=== PATIENT | female | born 1950 ===

== ENCOUNTER 2016-08-24 10:51 | Emergency (ER) | payer BC, OTHER ==
[2016-08-24 11:24] VITALS: O2SAT 97
[2016-08-24] MEDS ORDERED: Naproxen 550 mg Tab PO STA (11:33)
[2016-08-24] MEDS ORDERED: Naproxen 550 mg Tab PO ONE (11:38)
--- NOTE | 2016-08-24 11:38 | C.PDOC ---
History Of Present Illness 66 y/o female presents to ED with complaints of lateral neck pain for 2 days. Patient states she thinks it is muscle spasm that she has had before and the symptoms are similar now. Patient denies fall, injury, chest pain, sob, fever or any other complaints at this time. Time Seen by Provider: 08/24/16 11:21 Chief Complaint (Nursing): Upper Extremity Problem/Injury History Per: Patient History/Exam Limitations: no limitations Onset/Duration Of Symptoms: Days Current Symptoms Are (Timing): Still Present Quality: "Pain" Past Medical History Reviewed: Historical Data, Nursing Documentation, Vital Signs Vital Signs: Last Vital Signs Temp 98.2 F 08/24/16 11:20 Pulse 65 08/24/16 11:20 Resp 16 08/24/16 11:20 BP 126/76 08/24/16 11:20 Pulse Ox 97 08/24/16 12:59 - Medical History PMH: Arthritis, Asthma, HTN, Hypothyroidism Surgical History: Cholecystectomy Family History: States: No Known Family Hx - Social History Hx Alcohol Use: No Hx Substance Use: No - Immunization History Hx Tetanus Toxoid Vaccination: Yes Hx Influenza Vaccination: Yes Hx Pneumococcal Vaccination: No Review Of Systems Except As Marked, All Systems Reviewed And Found Negative. Constitutional: Negative for: Fever, Chills Cardiovascular: Negative for: Chest Pain Respiratory: Negative for: Shortness of Breath Musculoskeletal: Positive for: Neck Pain Skin: Negative for: Rash Neurological: Negative for: Headache Physical Exam - Physical Exam Appears: No Acute Distress, Other (Comfortable ) Skin: Normal Color, Warm Head: Atraumatic, Normacephalic Neck: No Paracervical Tenderness, Other (Tender to right Trapezius muscle, no swelling, no crepitus) Cardiovascular: Rhythm Regular, No Murmur Respiratory: Normal Breath Sounds, No Rales, No Rhonchi, No Wheezing Neurological/Psych: Oriented x3 ED Course And Treatment O2 Sat by Pulse Oximetry: 97 (RA) Progress Note: Patient given Naproxen. Patient re-evaluated and feeling better so was discharged home and instructed to return to ED if symptoms do not improve Disposition Counseled Patient/Family Regarding: Diagnosis, Need For Followup, Rx Given - Disposition Referrals: [facility] [Outside] Disposition: HOME/ ROUTINE Disposition Time: 11:50 Condition: STABLE Additional Instructions: FOLLOW UP WITH YOUR DOCTOR/MEDICAL CLINIC IN 1-2 DAYS USE MEDICATIONS NEEDED RETURN TO ER IF SYMPTOMS WORSEN Prescriptions: Cyclobenzaprine [Cyclobenzaprine HCl] 10 mg PO BID PRN #15 tab PRN Reason: Muscle Spasm Naproxen [Naprosyn Tab] 375 mg PO BID PRN #25 tab PRN Reason: pain Instructions: Muscle Spasm (ED) Print Language: VIET[place]ESE - POA Present On Arrival: None - Clinical Impression Clinical Impression: Muscle spasms of neck - Scribe Statement The provider has reviewed the documentation as recorded by the Gisell Grant All medical record entries made by the Gisell were at my direction and personally dictated by me. I have reviewed the chart and agree that the record accurately reflects my personal performance of the history, physical exam, medical decision making, and the department course for this patient. I have also personally directed, reviewed, and agree with the discharge instructions and disposition.
[2016-08-24 13:11] VITALS: BP 102/67; PULSE 60; RESP 18; TEMP 98.4
== END 2016-08-24 12:00 | disposition home or self-care (01) ==
LOC: C.ER 10:51
DX: M62.838 Other muscle spasm (principal)